=== PATIENT | male | born 1995 | race Caucasian/White ===

== ENCOUNTER 2018-10-31 16:07 | Emergency (ER) | payer OTHER ==
[2018-10-31 16:12] VITALS: BP 129/70
--- NOTE | 2018-10-31 16:30 | EDPHY ---
H & P Stated Complaint: Wants a refill for propranolol, doesn't have a PCP. Time Seen by Provider: 10/31/18 16:30 HPI/ROS: HPI CHIEF COMPLAINT: Propranolol Refill. HISTORY OF PRESENT ILLNESS: 23-year-old male, otherwise healthy does suffer from anxiety specifically he suffers from anxiety when he has to give speech is in front of a large audience. He states recently he has been doing this for school and having anxiety attacks. He states in the past she has taken propranolol all for this problem that controls his anxiety before he has to give speech. He has not had this in over a month. He states he only takes it when he needs to give a big speech. He is requesting a refill. Patient states he tried to get into [facility] however he was told it is 6 week wait.. He also reports to me that he made a follow-up appointment with a outpatient healthcare provider however it is not until next month. He did know where to turn decided come the emergency room to potentially get a refill. He denies any history of addiction problems or suicidal ideation or severe depression. Denies history of medication overdose. Denies history of medication abuse. Patient reports to me his previous dose was 20 mg. Past Medical History: Anxiety typically when he give speech is. Past Surgical History: No recent surgical history Social History: Denies drugs alcohol tobacco. [employer] student. Family History: Noncontributory ROS REVIEW OF SYSTEMS: 10 Systems were reviewed and negative with the exception of the elements mentioned in the history of present illness. Exam Constitutional triage nursing summary reviewed, vital signs reviewed, awake/ alert. Eyes normal conjunctivae and sclera, EOMI, PERRLA. HENT normal inspection, atraumatic, moist mucus membranes, no epistaxis, neck supple/ no meningismus, no raccoon eyes. Respiratory clear to auscultation bilaterally, normal breath sounds, no respiratory distress, no wheezing. Cardiovascular rate normal, regular rhythm, no murmur, no edema, distal pulses normal. Gastrointestinal soft, non-tender, no rebound, no guarding, normal bowel sounds, no distension, no pulsatile mass. Genitourinary no CVA tenderness. Musculoskeletal no midline vertebral tenderness, full range of motion, no calf swelling, no tenderness of extremities, no meningismus, good pulses, neurovascularly intact. Skin pink, warm, & dry, no rash, skin atraumatic. Neurologic awake, alert and oriented x 3, AAOx3, moves all 4 extremities equally, motor intact, sensory intact, CN II-XII intact, normal cerebellar, normal vision, normal speech. Psychiatric normal mood/affect. Heme/Lymph/Immune no lymphadenopathy. Differential Diagnosis: Includes but is not limited to in a particular order medication refill. Anxiety. Situational anxiety. Medical Decision Making: Plan for this patient will give him a limited supply propranolol. I do recommend he follows up on outpatient basis with his primary care doctor to have his medication refilled. I will give him a limited supply so he is able to take a dose prior to giving a big speech. He is comfortable this plan and understands need for follow-up. Propranolol 20 mg prescription provided limited supply until patient can follow- up. Previous history of taking 20 mg prescription provided. Source: Patient - Personal History Current Tetanus Diphtheria and Acellular Pertussis (TDAP): Yes - Medical/Surgical History Hx Asthma: No Hx Chronic Respiratory Disease: No Hx Diabetes: No Hx Cardiac Disease: No Hx Renal Disease: No Hx Cirrhosis: No Hx Alcoholism: No Hx HIV/AIDS: No Hx Splenectomy or Spleen Trauma: No Other PMH: Anxiety - Social History Smoking Status: Never smoked Constitutional: Initial Vital Signs Temperature (C) 36.6 C 10/31/18 16:08 Heart Rate 64 10/31/18 16:08 Respiratory Rate 16 10/31/18 16:08 Blood Pressure 129/70 H 10/31/18 16:08 O2 Sat (%) 95 10/31/18 16:08 O2 Delivery Mode Room Air Allergies/Adverse Reactions: No Known Allergies Allergy (Unverified 10/31/18 16:12) Home Medications: Medication Instructions Recorded Propranolol HCl 10/31/18 Propranolol HCl 20 mg PO DAILY #7 tablet 10/31/18 Departure - Departure Disposition: Home, Routine, Self-Care Clinical Impression: Medication refill Condition: Good Instructions: Generalized Anxiety Disorder (ED), Social Anxiety Disorder (ED), Anxiety (ED), Medicine Refill (ED) Additional Instructions: 1. Return emergency room if develops worsening symptoms 2. Please follow up with your primary care doctor 3. Your have been given a limited supply of anxiety medication. Referrals: NONE *PRIMARY CARE P,. [Primary Care Provider] - As per Instructions [facility] [Clinic] - As per Instructions Prescriptions: Propranolol HCl 20 mg PO DAILY #7 tablet
== END 2018-10-31 17:06 | disposition home or self-care (01) ==
DX: Z76.0 Encounter for issue of repeat prescription (principal)